=== PATIENT | male | born 1985 | race Caucasian/White ===

== ENCOUNTER 2021-05-27 12:39 | Emergency (ER) | payer OTHER ==
[~2021-05-27] VITALS: Ht 175.3 cm; Wt 90.9 kg
[2021-05-27 12:46] VITALS: BP 148/93
[2021-05-27] MEDS ORDERED: TETanus/Pertussis (Acell)/Diphther VAC/PF (Tdap-Adult) 0.5ml syringe IMVAC ONE (13:00)
[2021-05-27] MEDS ORDERED: CEPH-585 PO (14:16)
== END 2021-05-27 14:32 | disposition home or self-care (01) ==
LOC: ER 12:41
DX: S81.812A Laceration without foreign body, left lower leg, initial encounter (principal); Z88.2 Allergy status to sulfonamides; Z79.2 Long term (current) use of antibiotics; W31.89XA Contact with other specified machinery, initial encounter; Y93.89 Activity, other specified; Y92.89 Other specified places as the place of occurrence of the external cause; Y99.8 Other external cause status
CPT/HCPCS: 12002; 73590; 90471; 90715; 99283

== ENCOUNTER 2021-06-12 11:53 | Emergency (ER) | payer OTHER ==
[~2021-06-12] VITALS: Ht 177.8 cm; Wt 90.9 kg
[2021-06-12 12:09] VITALS: BP 133/95
== END 2021-06-12 12:24 | disposition home or self-care (01) ==
LOC: ER 11:53
DX: S81.811D Laceration without foreign body, right lower leg, subsequent encounter (principal); Z48.02 Encounter for removal of sutures; Z88.2 Allergy status to sulfonamides; X58.XXXD Exposure to other specified factors, subsequent encounter
CPT/HCPCS: 99281

== ENCOUNTER 2023-02-05 08:28 | Emergency (ER) | payer OTHER ==
[~2023-02-05] VITALS: Ht 175.3 cm; Wt 90.9 kg
[2023-02-05 08:38] VITALS: BP 125/83
[2023-02-05] MEDS ORDERED: CIPR-202 PO (09:24)
[2023-02-05] MEDS ORDERED: CIPR2.5D21 EACHEYE (09:24)
== END 2023-02-05 09:44 | disposition home or self-care (01) ==
LOC: ER 08:28
DX: L03.213 Periorbital cellulitis (principal); H00.015 Hordeolum externum left lower eyelid; H00.012 Hordeolum externum right lower eyelid; Z88.2 Allergy status to sulfonamides
CPT/HCPCS: 99283